=== PATIENT | male | born 1960 ===

== ENCOUNTER 2025-02-15 19:05 | Outpatient (REF) | payer OTHER, SELFPAY ==
[2025-02-15 21:56] LABS: HCT 40.4 % (40.0-50.0); HGB 13.7 g/dL (13.5-17.5); MCH 28.4 pg (27.0-33.0); MCHC 33.9 % (32.0-36.0); MCV 84 fL (80-95); MPV 11.4 fL (8.0-11.0); Platelet Count 104 10^3/uL (130-400); RBC 4.82 10^6/uL (4.36-5.78); RDW-SD 39.5 fL
[2025-02-15 22:09] LABS: ALT 77 U/L (16-63); AST 76 U/L (15-37); Albumin 3.6 g/dL (3.4-5.0); Alkaline Phosphatase 158 U/L (46-116); Anion Gap 9.1 mmol/L (3-11); BUN 14 mg/dL (7-18); Bilirubin, Total 0.7 mg/dL (0.2-1.0); CO2 28.9 mmol/L (21.0-32.0); CREATININE 1.1 mg/dL (0.70-1.30); Calcium 8.7 mg/dL (8.5-10.1); Chloride 98 mmol/L (98-107); Glucose 110 mg/dL (74-106); Potassium 3.8 mmol/L (3.5-5.1); Sodium 136 mmol/L (136-145); Total Protein 7.3 g/dL (6.4-8.2)
[2025-02-15 22:16] LABS: Absolute Basophil Count 0.07 10^3/uL (0.0-0.2); Absolute Eosinophil Count 0.04 10^3/uL (0.0-0.7); Absolute Lymphocyte Count 0.33 10^3/uL (1.2-3.4); Absolute Monocyte Count 0.22 10^3/uL (0.1-0.8); Absolute Neutrophil Count 1.18 10^3/uL (1.2-6.7); Atypical Lymphocytes % 6 %; Bands % 4 %
[2025-02-15 22:17] LABS: Diff Comment Manual Differential; RBC Morphology Normal
[2025-02-15 22:18] LABS: WBC 1.85 10^3/uL (4.4-10.8)
[2025-02-17 10:05] LABS: Lyme Ab w Rflx to Lyme Confirm Negative (Negative)
[2025-02-18 22:15] LABS: Anaplasma phagocytophilum Negative (Negative); B. miyamotoi PCR Negative (Negative); Babesia divergens/MO-1 Negative (Negative); Babesia duncani Negative (Negative); Babesia microti Negative (Negative); Ehrlichia chaffeensis Negative (Negative); Ehrlichia ewingii/canis Negative (Negative); Ehrlichia muris eauclairensis Negative (Negative)
== END 2025-02-15 19:06 | disposition home or self-care (01) ==
LOC: NCHCN 19:05
PROVIDERS: Visit Provider Internal Medicine
DX: R50.9 Fever, unspecified (principal); W57.XXXA Bitten or stung by nonvenomous insect and other nonvenomous arthropods, initial encounter
CPT/HCPCS: 80053; 87798; 84443; 85025; 86618

== ENCOUNTER 2025-02-23 15:43 | Outpatient (REF) | payer OTHER, SELFPAY ==
[2025-02-23 15:35] LABS: HCT 38.9 % (40.0-50.0); HGB 12.9 g/dL (13.5-17.5); MCH 28.5 pg (27.0-33.0); MCHC 33.2 % (32.0-36.0); MCV 86 fL (80-95); MPV 9.9 fL (8.0-11.0); Platelet Count 286 10^3/uL (130-400); RBC 4.53 10^6/uL (4.36-5.78); RDW 13.7 % (11.8-14.1); RDW-SD 42.6 fL; WBC 5.65 10^3/uL (4.4-10.8)
[2025-02-23 16:08] LABS: ALT 109 U/L (16-63); AST 45 U/L (15-37); Albumin 3.6 g/dL (3.4-5.0); Alkaline Phosphatase 132 U/L (46-116); Anion Gap 7.5 mmol/L (3-11); BUN 13 mg/dL (7-18); Bilirubin, Total 0.6 mg/dL (0.2-1.0); CO2 28.5 mmol/L (21.0-32.0); CREATININE 0.8 mg/dL (0.70-1.30); Calcium 8.8 mg/dL (8.5-10.1); Calculated LDL 164 mg/dL (<100); Chloride 103 mmol/L (98-107); Cholesterol 241 mg/dL (<200); Estimated GFR 100.06 (mL/min/1.73m2); Glucose 112 mg/dL (74-106); HDL Cholesterol 59 mg/dL (>or=40); Potassium 4.2 mmol/L (3.5-5.1); Sodium 139 mmol/L (136-145); Total Protein 7.1 g/dL (6.4-8.2); Triglyceride 90 mg/dL (<150)
== END 2025-02-23 15:44 | disposition home or self-care (01) ==
LOC: NCHCN 15:43
PROVIDERS: Visit Provider Internal Medicine
DX: E78.5 Hyperlipidemia, unspecified (principal); Z79.899 Other long term (current) drug therapy
CPT/HCPCS: 80053; 80061; 85027